=== PATIENT | female | born 1960 | race Caucasian/White ===

== ENCOUNTER → 2017-04-11 | Outpatient (CLI) | payer OTHER | END | disposition home or self-care (01) | LOC: RAD 12:15 | PROVIDERS: ATTEND Nurse Practitioner Family | DX: M51.36 Other intervertebral disc degeneration, lumbar region (principal); M41.86 Other forms of scoliosis, lumbar region; M48.07 Spinal stenosis, lumbosacral region; M48.06 Spinal stenosis, lumbar region; G89.29 Other chronic pain | CPT/HCPCS: 72110 ==

== ENCOUNTER → 2018-11-25 | Outpatient (CLI) | payer BC | END | disposition home or self-care (01) | LOC: CFH 16:12 | PROVIDERS: ATTEND Family Medicine | DX: Z12.31 Encounter for screening mammogram for malignant neoplasm of breast (principal) | CPT/HCPCS: 77067 ==

== ENCOUNTER 2019-10-14 15:36 | Outpatient (CLI) | payer BC ==
[2019-10-14] MEDS ORDERED: AMPH20CA7 PO (16:16)
[2019-10-14] MEDS ORDERED: ZOLP10TA PO (16:16)
[2019-10-14] MEDS ORDERED: BUPR75TA6 PO (16:16)
[2019-10-14] MEDS ORDERED: ACYC-114 PO (16:16)
== END 2019-10-14 23:59 | disposition home or self-care (01) ==
LOC: STAR 15:36
PROVIDERS: ATTEND Specialist
DX: Z02.9 Encounter for administrative examinations, unspecified (principal)